=== PATIENT | male | born 1950 | race Caucasian/White ===

== ENCOUNTER 2017-11-10 17:02 | Inpatient (IN) ==
[2017-11-10] MEDS ORDERED: 0.9 % Sodium Chloride 1,000 ML IVC ONE (17:18)
[2017-11-10] MEDS ORDERED: Thiamine (B-1) 100 MG, Folic Acid 1 MG, MVI, adult with vitamin K 10 ML in 0.9 % Sodi... IVPB ONE (17:20)
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
[2017-11-10 18:03] LABS: Bilirubin,Urine Small (Negative); Blood,Urine Moderate (Negative); Clarity,Urine Clear (Clear); Color,Urine Dark Yellow (Yellow); Glucose,Urine (UA) Normal (Normal); Ketones,Urine 40 mg/dL (Negative); Leukocyte Esterase,Urine Negative (Negative); Nitrite,Urine Negative (Negative); PH,Urine 5.5 pH Units (5.0-8.0); Protein,Urine 30 mg/dL (Neg-Trace); Specific Gravity,Urine 1.018 (1.010-1.025); Urobilinogen,Urine Normal (Normal)
[2017-11-10 18:06] LABS: Bacteria,Urine None Seen per hpf (None-Few); Hyaline Casts,Urine Few per lpf (None-Few); RBC,Urine 0-3 per hpf (0-3); Squamous Epithelial Cell,Urine Few per lpf (None-Few); WBC,Urine 0-3 per hpf (0-3)
[2017-11-10 18:07] LABS: Basophils % 0.5 %; Eosinophils % 0.1 %; Hematocrit 41.4 % (37.5-50.1); Hemoglobin 14.2 g/dL (12.9-16.9); Immature Granulocytes % 0.6 % (0-4); Lymphocytes # 0.8 K/mcL (0.6-4.6); Lymphocytes % 9.4 %; Mean Corpuscular HGB Conc 34.3 g/dL (31.6-35.5); Mean Corpuscular Hemoglobin 33.8 pg (28.0-33.3); Mean Corpuscular Volume 98.6 fL (83.0-100.0); Mean Platelet Volume 10.7 fL (9.4-12.4); Monocytes # 1.1 K/mcL (0.0-1.3); Monocytes % 13.1 %; Neutrophils # 6.5 K/mcL (1.6-8.9); Platelet Count 176 K/mcL (140-400); Segmented Neutrophils % 76.3 %
[2017-11-10 18:13] LABS: INR 0.9
[2017-11-10 18:25] LABS: Troponin I < 0.03 ng/mL (< 0.04)
[2017-11-10 18:30] LABS: Albumin 4.7 g/dL (3.5-5.7); Albumin/Globulin Ratio 1.9 (1.1-2.2); Bilirubin,Direct 0.5 mg/dL (0.0-0.2); Bilirubin,Indirect 1.4 mg/dL (0.0-1.2); Bilirubin,Total 1.9 mg/dL (0.3-1.0); Globulin 2.5 g/dL (2.4-3.5); Total Protein 7.2 g/dL (6.4-8.9)
[2017-11-10 18:31] LABS: BUN/Creatinine Ratio 31 (6-26); Blood Urea Nitrogen 50 mg/dL (8-23); Calcium 9.9 mg/dL (8.6-10.3); Carbon Dioxide 22 mEq/L (23-29); Chloride 94 mEq/L (98-107); Ethanol < 10 mg/dL (Less than 10); Glucose 100 mg/dL (70-105); Osmolality,Calculated 281 (280-300); Potassium 3.9 mEq/L (3.5-5.1); Sodium 129 mEq/L (136-145); eGFR For Non-African Americans 43 (> 60)
[2017-11-10] MEDS ORDERED: *HR* LORazepam 2 MG/ML VIAL IVP ONE ×3 (19:03→21:16)
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
[2017-11-10 19:28] LABS: Amphetamine Screen,Urine Negative ng/mL (Cutoff=1000); Barbiturate Screen,Urine Negative ng/mL (Cutoff=200); Benzodiazepines Screen,Urine Negative ng/mL (Cutoff=200); Cannabinoid Screen,Urine Negative ng/mL (Cutoff = 50); Cocaine Screen,Urine Negative ng/mL (Cutoff= 300); Opiate Screen,Urine Negative ng/mL (Cutoff=300); Phencyclidine Screen,Urine Negative ng/mL (Cutoff=25)
[2017-11-10] MEDS ORDERED: *HR* Promethazine 25 MG/ML VIAL IVP PRN (20:56)
[2017-11-10] MEDS ORDERED: Naloxone 0.4 MG/ML INJ IVP PRN (20:56)
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
[2017-11-10] MEDS ORDERED: *HR* LORazepam 2 MG/ML VIAL ONE (21:17)
[2017-11-10] MEDS: *HR* Heparin 5,000 UNIT/ML VIAL SQ SCH (22:18)
[2017-11-10] MEDS: *HR* LORazepam 2 MG/ML VIAL IVP PRN ×2 (22:54→23:27)
[2017-11-10] MEDS: 0.9 % Sodium Chloride 1,000 ML IVC SCH (23:35)
[2017-11-11] MEDS: *HR* LORazepam 2 MG/ML VIAL IVP PRN ×11 (03:35→23:57)
[2017-11-11] MEDS: *HR* Heparin 5,000 UNIT/ML VIAL SQ SCH ×3 (04:57→21:12)
[2017-11-11 06:41] LABS: Alanine Aminotransferase 57 Units/L (7-52); Albumin 3.9 g/dL (3.5-5.7); Alkaline Phosphatase 38 Units/L (34-104); Aspartate Amino Transferase 82 Units/L (13-39); BUN/Creatinine Ratio 35 (6-26); Bilirubin,Total 1.9 mg/dL (0.3-1.0); Blood Urea Nitrogen 35 mg/dL (8-23); Calcium 8.6 mg/dL (8.6-10.3); Carbon Dioxide 22 mEq/L (23-29); Chloride 104 mEq/L (98-107); Glucose 84 mg/dL (70-105); Osmolality,Calculated 285 (280-300); Sodium 134 mEq/L (136-145); Total Protein 5.9 g/dL (6.4-8.9); eGFR For Non-African Americans > 60 (> 60)
[2017-11-11] MEDS: 0.9 % Sodium Chloride 1,000 ML IVC SCH (09:20)
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
[2017-11-11 11:12] LABS: Vitamin B12 275 pg/mL (250-1100)
[2017-11-11 14:58] LABS: Folate > 22.3 ng/mL (3.0-16.0)
--- NOTE | 2017-11-11 15:43 | Electrocardiograph Report ---
[place] [id number] Test Date: 2017-11-10 Pat Name: Carlos Betancourt Department: [id number] Room: 2N11 Gender: M Valance Cutter: : 1950 Requested By: Brandon Junior Order Number: [id number] Reading MD: Alexus Su Measurements Intervals [place] Rate: 93 P: -4 [place]: 140 QRS: -54 QRSD: 99 T: 46 QT: 355 QTc: 442 Interpretive Statements Sinus rhythm Left anterior fascicular block Abnormal R-wave progression, early transition Electronically Signed On 11-11-2017 15:42:16 EDT by Alexus Su
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
[2017-11-11] MEDS ORDERED: Cyanocobalamin (B-12) 1,000 MCG/ML VIAL IM ONE (17:23)
[2017-11-11] MEDS: Thiamine (B-1) 100 MG, Folic Acid 1 MG, MVI, adult with vitamin K 10 ML in 0.9 % Sodi... IVPB SCH (17:51)
[2017-11-12] MEDS: *HR* LORazepam 2 MG/ML VIAL IVP PRN ×3 (00:55→09:01)
[2017-11-12 04:40] LABS: Basophils % 0.6 %; Eosinophils # 0.1 K/mcL (0.0-0.6); Eosinophils % 2.1 %; Hematocrit 38.8 % (37.5-50.1); Hemoglobin 13.2 g/dL (12.9-16.9); Immature Granulocytes % 0.5 % (0-4); Lymphocytes % 15.4 %; Mean Corpuscular Hemoglobin 33.1 pg (28.0-33.3); Mean Corpuscular Volume 97.2 fL (83.0-100.0); Mean Platelet Volume 10.4 fL (9.4-12.4); Monocytes # 0.9 K/mcL (0.0-1.3); Monocytes % 13.8 %; Neutrophils # 4.2 K/mcL (1.6-8.9); Platelet Count 141 K/mcL (140-400); Red Blood Count 3.99 M/mcL (4.19-5.50); Red Cell Distribution Width 13.2 % (11.5-14.5); Segmented Neutrophils % 67.6 %
[2017-11-12 05:04] LABS: Alanine Aminotransferase 62 Units/L (7-52); Albumin 3.8 g/dL (3.5-5.7); Albumin/Globulin Ratio 1.8 (1.1-2.2); Alkaline Phosphatase 41 Units/L (34-104); Aspartate Amino Transferase 61 Units/L (13-39); BUN/Creatinine Ratio 24 (6-26); Bilirubin,Total 1.3 mg/dL (0.3-1.0); Blood Urea Nitrogen 17 mg/dL (8-23); Calcium 8.8 mg/dL (8.6-10.3); Carbon Dioxide 22 mEq/L (23-29); Chloride 102 mEq/L (98-107); Globulin 2.1 g/dL (2.4-3.5); Glucose 89 mg/dL (70-105); Osmolality,Calculated 281 (280-300); Potassium 3.4 mEq/L (3.5-5.1); Sodium 135 mEq/L (136-145); Total Protein 5.9 g/dL (6.4-8.9); eGFR For Non-African Americans > 60 (> 60)
[2017-11-12] MEDS: *HR* Heparin 5,000 UNIT/ML VIAL SQ SCH ×3 (05:13→21:28)
[2017-11-12] MEDS: Thiamine (B-1) 100 MG TABLET PO SCH (09:04)
--- NOTE | 2017-11-12 09:32 | Internal Med Progress Note ---
<Cosme Hsu S - Last Filed: 11/12/17 11:48> Hospitalist Progress Note - Encounter Date of Encounter: 11/12/17 Time of Encounter: 09:29 - Subjective Interval History: Mr. Betancourt is a 67 yo male with cc of confon. He came via EMS. -pt is unable to appropriately answer questions, becomes extremely agitated to sternal rub -all questions directed towards nursing and from night resident notes Pt apperently came because of confusion. Pt girlfriend was present last night and reports intermittent confusion, however, confusion has increased severly. -he picked up by police two nights ago after being found on the highway [place] 35mph -daughter reported she picked him up and brought him home -he then called 911 and reported strangers breaking into his house, naked men in garage -director of premium seat sales came and found nobody in the home -he has had an increased amount of falls and is covered in scrapes/bruises Pt has an extensive hx of EtOH abuse, drinks 5-6 12 oz cans daily -last drink was 11/09/17 Pt completely unable to be woken up. Becomes aggressive to sternal rub, reaches out to grab at things not there. -nurse reports he required sitter all night -extremely confused - Exam Vitals: Temp Pulse Resp BP Pulse Ox 97.8 F 74 17 176/97 99 11/12/17 07:23 11/12/17 07:23 11/12/17 07:23 11/12/17 07:23 11/12/17 07:23 Exam: Deferred due to aggression. - Assessment and Plan (1) Falls Current Visit: Yes Status: Acute Assessment and Plan: Hx of multiple falls -Ct head negative Plan: -concern for thiamine def and Wernicke encephalopathy -PTOT consulted -thiamine vitamin daily -banana bag -CIWA protcol, Librium 25mg PO QID -missed PTOT appt yesterday (2) Alcohol withdrawal Current Visit: Yes Status: Acute Assessment and Plan: Extensive hx of etoh abuse -last CIWA score 18 -pt completely unable to answer questions, reaches out at me, becomes agitated at sternal rub Currently HR 74, autonomic stability, BP is 176/97 -afebrile Liver US showed hepatic fatty infiltration Plan: -started on ciwa protocol Q4h -Aspiration precautions = keep head of bed elevated, neuro checks q4hr -phenergan prn nausea -MRI will not be ordered at this time due to noncompliance -toprol 12.5 BID prn SBP>160, pt most likely HTNive secondary to alcohol withdrawal -neuro consult, recommendations appreciated (3) Acute kidney injury Current Visit: Yes Status: Resolved Assessment and Plan: On admission serum manager electronic 1.61 -yesterday (11/11) 0.99 ---> 0.72 (11/12) -baseline around 1.07 Most likely prerenal 2/2 poor PO intake; resolved Plan: -continue IVF at 100cc/hr 0.9% NS discontinued -monitor renal fxn (4) Transaminitis Current Visit: Yes Status: Acute Assessment and Plan: Likely secondary to EtOH abuse -t bilirubin 1.3 -AST 61 -ALT 62 -alk phos 41 Liver US showed fatty infiltration Plan: -lifestyle modification (5) Hyponatremia Current Visit: Yes Status: Acute Assessment and Plan: mild hyponatremia of 129 on admission, increased to 135 -likely secondary to poor PO intake Plan: -discontinue 100cc/hr 0.9% NS -CMP in AM (6) Alcoholic encephalopathy Current Visit: Yes Status: Acute Assessment and Plan: -45 year history of drinking 5-6 12 ounce beers per day -has started to fall increasing amount of times per day -CT head negative for acute process -has increasing confusion, hallucination -poor sleep, according to girlfriend UDS negative EtOH level <10 Last drink 11/10 in the morning B12 level 275Folate >22.3 Plan: -on banana bag. -regular diet -monitor for DT's -[place] protocol, Librium QID -thiamine vitamin daily -vitamin B12 supplement (7) DVT prophylaxis Current Visit: Yes Status: Acute Assessment and Plan: heparin sq TID (8) Hypertension Current Visit: Yes Status: Acute Assessment and Plan: BP 176/97 -d/c lopressor -start daily lisinopril DVT Prophylaxis: sq heparin - Time Spent with Patient Total time spent is greater than 50% in coordination of care (as documented) at patient's floor/unit and/or counseling patient: less than 15 minutes Plan of Care Discussed with: nurse Internal Medicine: Result - Labs CBC & Chem 7: 11/12/17 04:18 09/14/18 04:18 Labs: Short CBC 11/12/17 Range/Units 04:18 WBC 6.2 (4.3-11.1) K/mcL Hgb 13.2 (12.9-16.9) g/dL Hct 38.8 (37.5-50.1) % Plt Count 141 (140-400) K/mcL Neutrophils # 4.2 (1.6-8.9) K/mcL BMP 11/11/17 11/12/17 09:54 04:18 Sodium 135 L Potassium 3.4 L Chloride 102 Carbon Dioxide 22 L BUN 17 Creatinine 0.72 Glucose 86 89 Calcium 8.8 Liver Function 11/12/17 Range/Units 04:18 Total Bilirubin 1.3 H (0.3-1.0) mg/dL AST 61 H (13-39) Units/L ALT 62 H (7-52) Units/L Alkaline Phosphatase 41 (34-104) Units/L Albumin 3.8 (3.5-5.7) g/dL - ABG Interpretation ABG results: PT/INR, D-dimer PT 10.0 Seconds (9.4-12.1) 11/10/17 17:35 Consult Discharge Plan - Plan Referrals: Tashai Hsu, CENTER MEDICAL DIRECTOR [Primary Care Provider] - 11/25/17 9:00 am <Fabien Trejo - Last Filed: 11/12/17 15:00> Hospitalist Progress Note - Encounter Date of Encounter: 11/12/17 - Exam Vitals: Temp Pulse Resp BP Pulse Ox 98.7 F 75 18 119/86 95 11/12/17 11:11 11/12/17 11:11 11/12/17 11:11 11/12/17 12:53 11/12/17 11:11 - Assessment and Plan (1) Falls Current Visit: Yes Status: Acute (2) Alcohol withdrawal Current Visit: Yes Status: Acute (3) Acute kidney injury Current Visit: Yes Status: Resolved (4) Transaminitis Current Visit: Yes Status: Acute (5) Hyponatremia Current Visit: Yes Status: Acute (6) Alcoholic encephalopathy Current Visit: Yes Status: Acute (7) DVT prophylaxis Current Visit: Yes Status: Acute (8) Hypertension Current Visit: Yes Status: Acute - Time Spent with Patient Total time spent is greater than 50% in coordination of care (as documented) at patient's floor/unit and/or counseling patient: Internal Medicine: Result - Labs CBC & Chem 7: 11/12/17 04:18 11/12/17 04:18 Labs: Short CBC 11/12/17 Range/Units 04:18 WBC 6.2 (4.3-11.1) K/mcL Hgb 13.2 (12.9-16.9) g/dL Hct 38.8 (37.5-50.1) % Plt Count 141 (140-400) K/mcL Neutrophils # 4.2 (1.6-8.9) K/mcL BMP 11/12/17 04:18 Sodium 135 L Potassium 3.4 L Chloride 102 Carbon Dioxide 22 L BUN 17 Creatinine 0.72 Glucose 89 Calcium 8.8 Liver Function 11/12/17 Range/Units 04:18 Total Bilirubin 1.3 H (0.3-1.0) mg/dL AST 61 H (13-39) Units/L ALT 62 H (7-52) Units/L Alkaline Phosphatase 41 (34-104) Units/L Albumin 3.8 (3.5-5.7) g/dL - ABG Interpretation ABG results: PT/INR, D-dimer PT 10.0 Seconds (9.4-12.1) 11/10/17 17:35 - Attending Attestation I examined this patient and my medical decision-making was reviewed with the Resident Physician. I agree with the documented findings, disposition and treatment plan as described except to the extent set forth below. Patient's daughter and neighbor are both at bedside. Patient less combative today. They report that he is more calm when they are present because they are familiar faces to him. He is drowsy but arouses to verbal stimuli. 1. Acute metabolic encephalopathy - secondary to chronic alcohol abuse 2. Alcohol withdrawal 3. Hypertension 4. Fatty liver disease secondary to alcohol abuse - Continue CIWA protocol - Taper Librium - Continue thiamine/folic acid supplementation - Psychiatry consult when more stable. <Cosme Hsu - Last Filed: 11/12/17 11:48> (1) Falls Qualifiers: Encounter type: initial encounter Qualified Code(s): W19.XXXA - Unspecified fall, initial encounter (2) Alcohol withdrawal Qualifiers: Complication of substance-induced condition: with delirium Qualified Code(s) : F10.231 - Alcohol dependence with withdrawal delirium (8) Hypertension Qualifiers: Hypertension type: essential hypertension Qualified Code(s): I10 - Essential (primary) hypertension <Fabien Trejo - Last Filed: 11/12/17 15:00> (1) Falls Qualifiers: Encounter type: initial encounter Qualified Code(s): W19.XXXA - Unspecified fall, initial encounter (2) Alcohol withdrawal Qualifiers: Complication of substance-induced condition: with delirium Qualified Code(s) : F10.231 - Alcohol dependence with withdrawal delirium (8) Hypertension Qualifiers: Hypertension type: essential hypertension Qualified Code(s): I10 - Essential (primary) hypertension
[2017-11-12] MEDS ORDERED: *HR* Metoprolol 5 MG/5 ML VIAL IVP PRN (12:41)
[2017-11-12] MEDS ORDERED: 0.9 % Sodium Chloride 1,000 ML IVC SCH (12:45)
[2017-11-12] MEDS: Cyanocobalamin (B-12) 1,000 MCG TABLET PO SCH (17:05)
[2017-11-12] MEDS: Thiamine (B-1) 100 MG, Folic Acid 1 MG, MVI, adult with vitamin K 10 ML in 0.9 % Sodi... IVPB SCH (17:06)
[2017-11-13] MEDS: *HR* LORazepam 2 MG/ML VIAL IVP PRN ×3 (04:53→23:14)
[2017-11-13] MEDS: *HR* Heparin 5,000 UNIT/ML VIAL SQ SCH ×3 (05:55→21:36)
[2017-11-13 06:26] LABS: Basophils # 0.1 K/mcL (0.0-0.2); Eosinophils # 0.2 K/mcL (0.0-0.6); Eosinophils % 2.9 %; Hematocrit 41.3 % (37.5-50.1); Immature Granulocytes % 0.7 % (0-4); Lymphocytes % 17.1 %; Mean Corpuscular HGB Conc 33.9 g/dL (31.6-35.5); Mean Corpuscular Hemoglobin 33.6 pg (28.0-33.3); Mean Platelet Volume 10.4 fL (9.4-12.4); Monocytes # 1.1 K/mcL (0.0-1.3); Monocytes % 18.4 %; Neutrophils # 3.7 K/mcL (1.6-8.9); Platelet Count 163 K/mcL (140-400); Red Blood Count 4.17 M/mcL (4.19-5.50); Red Cell Distribution Width 13.4 % (11.5-14.5); Segmented Neutrophils % 59.9 %
[2017-11-13 06:43] LABS: Platelet Estimate Normal (Normal)
[2017-11-13 06:44] LABS: Reactive Lymphocytes Present (Not Present)
[2017-11-13 06:46] LABS: Alanine Aminotransferase 59 Units/L (7-52); Albumin 3.6 g/dL (3.5-5.7); Albumin/Globulin Ratio 1.7 (1.1-2.2); Alkaline Phosphatase 41 Units/L (34-104); Aspartate Amino Transferase 38 Units/L (13-39); BUN/Creatinine Ratio 24 (6-26); Blood Urea Nitrogen 19 mg/dL (8-23); Carbon Dioxide 23 mEq/L (23-29); Chloride 104 mEq/L (98-107); Globulin 2.1 g/dL (2.4-3.5); Glucose 104 mg/dL (70-105); Osmolality,Calculated 287 (280-300); Potassium 3.5 mEq/L (3.5-5.1); Sodium 137 mEq/L (136-145); Total Protein 5.7 g/dL (6.4-8.9); eGFR For Non-African Americans > 60 (> 60)
[2017-11-13] MEDS: Cyanocobalamin (B-12) 1,000 MCG TABLET PO SCH (09:42)
[2017-11-13] MEDS: Thiamine (B-1) 100 MG TABLET PO SCH (09:42)
--- NOTE | 2017-11-13 10:29 | Internal Med Progress Note ---
Hospitalist Progress Note - Encounter Date of Encounter: 11/13/17 Time of Encounter: 10:27 - Subjective Interval History: No acute events overnight. Staff this morning reports it has been difficulty to get him back into bed but he was eventually cooperative. - Exam Vitals: Temp Pulse Resp BP Pulse Ox 98.0 F 77 18 148/89 95 11/13/17 06:56 11/13/17 06:56 11/13/17 06:56 11/13/17 06:56 11/12/17 19:29 Exam: Limited exam due to patient agitation. CVS: RRR Lungs: CTAB Ext: No edema - Assessment and Plan (1) Alcoholic encephalopathy Current Visit: Yes Status: Acute Assessment and Plan: -45 year history of drinking 5-6 12 ounce beers per day -has started to fall increasing amount of times per day -CT head negative for acute process -has increasing confusion, hallucination -poor sleep, according to girlfriend UDS negative EtOH level <10 Last drink 11/10 in the morning B12 level 275Folate >22.3 Plan: -on banana bag. -regular diet -monitor for DT's -CIWA protocol, Librium QID -thiamine vitamin daily -vitamin B12 supplement Taper librium today (2) Alcohol withdrawal Current Visit: Yes Status: Acute Assessment and Plan: Extensive hx of etoh abuse -last CIWA score 18 -pt completely unable to answer questions, reaches out at me, becomes agitated at sternal rub Currently HR 74, autonomic stability, BP is 176/97 -afebrile Liver US showed hepatic fatty infiltration Plan: -started on ciwa protocol Q4h -Aspiration precautions = keep head of bed elevated, neuro checks q4hr -phenergan prn nausea -MRI will not be ordered at this time due to noncompliance -toprol 12.5 BID prn SBP>160, pt most likely HTNive secondary to alcohol withdrawal (3) Falls Current Visit: Yes Status: Acute Assessment and Plan: Hx of multiple falls -Ct head negative Plan: -concern for thiamine def and Wernicke encephalopathy -PTOT consulted -thiamine vitamin daily -banana bag -CIWA protcol, Librium 25mg PO QID -missed PTOT appt yesterday (4) Acute kidney injury Current Visit: Yes Status: Resolved Assessment and Plan: On admission serum disc inspector 1.61 -yesterday (11/11) 0.99 ---> 0.72 (11/12) -baseline around 1.07 Most likely prerenal 2/2 poor PO intake; resolved Plan: -monitor renal fxn (5) Transaminitis Current Visit: Yes Status: Acute Assessment and Plan: Likely secondary to EtOH abuse -t bilirubin 1.3 -AST 61 -ALT 62 -alk phos 41 Liver US showed fatty infiltration Plan: -lifestyle modification (6) Hyponatremia Current Visit: Yes Status: Acute Assessment and Plan: mild hyponatremia of 129 on admission, increased to 135 -likely secondary to poor PO intake Plan: -discontinue 100cc/hr 0.9% NS -CMP in AM (7) DVT prophylaxis Current Visit: Yes Status: Acute Assessment and Plan: heparin sq TID (8) Hypertension Current Visit: Yes Status: Acute Assessment and Plan: Improving today -d/c lopressor -start daily lisinopril - Time Spent with Patient Total time spent is greater than 50% in coordination of care (as documented) at patient's floor/unit and/or counseling patient: Internal Medicine: Result - Labs CBC & Chem 7: 11/13/17 05:50 11/13/17 05:50 Labs: Short CBC 11/13/17 Range/Units 05:50 WBC 6.1 (4.3-11.1) K/mcL Hgb 14.0 (12.9-16.9) g/dL Hct 41.3 (37.5-50.1) % Plt Count 163 (140-400) K/mcL Neutrophils # 3.7 (1.6-8.9) K/mcL BMP 11/13/17 05:50 Sodium 137 Potassium 3.5 Chloride 104 Carbon Dioxide 23 BUN 19 Creatinine 0.80 Glucose 104 Calcium 9.0 Liver Function 11/13/17 Range/Units 05:50 Total Bilirubin 1.0 (0.3-1.0) mg/dL AST 38 (13-39) Units/L ALT 59 H (7-52) Units/L Alkaline Phosphatase 41 (34-104) Units/L Albumin 3.6 (3.5-5.7) g/dL - ABG Interpretation ABG results: PT/INR, D-dimer PT 10.0 Seconds (9.4-12.1) 11/10/17 17:35 Consult Discharge Plan - Plan Referrals: Tashia Hsu, RELEASE MANAGER [Primary Care Provider] - 11/25/17 9:00 am (2) Alcohol withdrawal Qualifiers: Complication of substance-induced condition: with delirium Qualified Code(s) : F10.231 - Alcohol dependence with withdrawal delirium (3) Falls Qualifiers: Encounter type: initial encounter Qualified Code(s): W19.XXXA - Unspecified fall, initial encounter (8) Hypertension Qualifiers: Hypertension type: essential hypertension Qualified Code(s): I10 - Essential (primary) hypertension
[2017-11-13 14:19] LABS: Sodium, Urine 22.6 mEq/L
[2017-11-13] MEDS: Thiamine (B-1) 100 MG, Folic Acid 1 MG, MVI, adult with vitamin K 10 ML in 0.9 % Sodi... IVPB SCH (16:08)
[2017-11-14] MEDS: *HR* Heparin 5,000 UNIT/ML VIAL SQ SCH ×3 (07:13→20:43)
[2017-11-14] MEDS: Cyanocobalamin (B-12) 1,000 MCG TABLET PO SCH (08:57)
[2017-11-14] MEDS: Thiamine (B-1) 100 MG TABLET PO SCH (08:58)
[2017-11-14] MEDS: *HR* LORazepam 2 MG/ML VIAL IVP PRN ×3 (08:58→23:43)
--- NOTE | 2017-11-14 11:03 | Internal Med Progress Note ---
Hospitalist Progress Note - Encounter Date of Encounter: 11/14/17 Time of Encounter: 11:06 - Subjective Interval History: No acute events overnight. Patient was very cooperative this morning. He has no complaints, eating breakfast. He is alert but still confused but pleasant at this moment. - Exam Vitals: Temp Pulse Resp BP Pulse Ox 97.3 F L 72 18 171/90 99 11/14/17 08:50 11/14/17 08:50 11/14/17 08:50 11/14/17 08:50 11/14/17 08:50 Exam: Cooperative with exam: Gen: NAD, AAO x2 CVS: RRR Lungs: CTAB Ext: No edema - Assessment and Plan (1) Alcoholic encephalopathy Current Visit: Yes Status: Acute Assessment and Plan: -45 year history of drinking 5-6 12 ounce beers per day, was started to fall increasing amount of times per day -CT head negative for acute process. Was having gradual decline over several years after alcohol abuse worsened. - [facility] protocol - Thiamine and B12 supplementation - Taper Librium today to 25 mg TID - SW and PT/OT for discharge planning. (2) Falls Current Visit: Yes Status: Acute (3) Acute kidney injury Current Visit: Yes Status: Resolved Assessment and Plan: On admission serum diagnostic technologist 1.61 Most likely prerenal 2/2 poor PO intake; resolved (4) Transaminitis Current Visit: Yes Status: Acute Assessment and Plan: Likely secondary to EtOH abuse -t bilirubin 1.3 -AST 61 -ALT 62 -alk phos 41 Liver US showed fatty infiltration Likely from chronic alcohol abuse (5) Hyponatremia Current Visit: Yes Status: Acute Assessment and Plan: mild hyponatremia of 129 on admission, increased to 135 -likely secondary to poor PO intake. Was supplemented with IV fluid hydration. Now resolved. (6) DVT prophylaxis Current Visit: Yes Status: Acute Assessment and Plan: heparin sq TID (7) Hypertension Current Visit: Yes Status: Acute Assessment and Plan: Improving after lisinopril addition. - Continue daily lisinopril - Give IV Vasotec as needed. - Time Spent with Patient Total time spent is greater than 50% in coordination of care (as documented) at patient's floor/unit and/or counseling patient: Internal Medicine: Result - Labs CBC & Chem 7: 11/13/17 05:50 11/13/17 05:50 - ABG Interpretation ABG results: PT/INR, D-dimer PT 10.0 Seconds (9.4-12.1) 11/10/17 17:35 Consult Discharge Plan - Plan Referrals: Tashia Hsu CNP [Primary Care Provider] - 11/25/17 9:00 am (2) Falls Qualifiers: Encounter type: initial encounter Qualified Code(s): W19.XXXA - Unspecified fall, initial encounter (7) Hypertension Qualifiers: Hypertension type: essential hypertension Qualified Code(s): I10 - Essential (primary) hypertension
[2017-11-15] MEDS: *HR* Heparin 5,000 UNIT/ML VIAL SQ SCH ×3 (05:58→20:38)
[2017-11-15] MEDS: *HR* LORazepam 2 MG/ML VIAL IVP PRN ×2 (07:39→20:38)
[2017-11-15] MEDS: Thiamine (B-1) 100 MG TABLET PO SCH (07:40)
[2017-11-15] MEDS: Cyanocobalamin (B-12) 1,000 MCG TABLET PO SCH (07:40)
--- NOTE | 2017-11-15 09:35 | Internal Med Progress Note ---
<HsuCosme S - Last Filed: 11/15/17 11:49> Hospitalist Progress Note - Encounter Date of Encounter: 11/15/17 Time of Encounter: 09:33 - Subjective Interval History: Mr. Betancourt is a 67 yo male with cc of confon. He came via EMS. -pt was unable to appropriately answer questions, becomes extremely agitated to sternal rub on admission -all questions directed towards nursing and from night resident notes for initial H&P Pt apperently came because of confusion. Pt girlfriend was present last night and reports intermittent confusion, however, confusion has increased severly. -he picked up by police two nights ago after being found on the [place] 35mph -daughter reported she picked him up and brought him home -he then called 911 and reported strangers breaking into his house, naked men in garage -breaker up machine operator came and found nobody in the home -he has had an increased amount of falls and is covered in scrapes/bruises Pt has an extensive hx of EtOH abuse, drinks 5-6 12 oz cans daily -last drink was 11/09/17 Pt is able to speak today and is awake. He doesn't know where he is, states the year is 1917. He knows [place] is president. He knows his birthday. -nursing staff states he has been aggressive today -continues to urinate himself -tells me to "get lost" while in the room - Exam Vitals: Temp Pulse Resp BP Pulse Ox 97.7 F 75 20 171/96 97 11/15/17 07:39 11/15/17 07:39 11/15/17 07:39 11/15/17 07:39 11/15/17 07:39 Exam: Gen: NAD, AAO x1, disheveled CVS: RRR, s1s2, cta no mrg Lungs: CTAB, no wheeze/rhonchi, no accessory mm use abd - NTND, not obese, no rebound or guarding skin - multiple tattoos, some scratches and bruises, no track haque Ext: No edema - Assessment and Plan (1) Falls Current Visit: Yes Status: Acute Assessment and Plan: Hx of multiple falls -Ct head negative B9 >22.3 B12 275 Plan: -concern for thiamine def and Wernicke encephalopathy -thiamine vitamin daily -CIWA protcol, Librium 25mg PO TID as of 11/14 -PTOT eval rec is for ECF/SNF -daughter to come today to discuss with SW future plans and for POA assignment (2) Acute kidney injury Current Visit: Yes Status: Resolved Assessment and Plan: On admission serum track sweeper 1.61 BUN 19, Jewel Inspector 0.8 Most likely prerenal 2/2 poor PO intake; resolved (3) Transaminitis Current Visit: Yes Status: Acute Assessment and Plan: Likely secondary to EtOH abuse -t bilirubin 1.0 -AST 38 -ALT 59 -alk phos 41 Liver US showed fatty infiltration Likely from chronic alcohol abuse (4) Hyponatremia Current Visit: Yes Status: Resolved Assessment and Plan: mild hyponatremia of 129 on admission, increased to 137 -likely secondary to poor PO intake. Was supplemented with IV fluid hydration. Now resolved. (5) Alcoholic encephalopathy Current Visit: Yes Status: Acute Assessment and Plan: -45 year history of drinking 5-6 12 ounce beers per day, was started to fall increasing amount of times per day -CT head negative for acute process. Was having gradual decline over several years after alcohol abuse worsened. Plan: - [facility] protocol - Thiamine and B12 supplementation - Taper Librium today to 25 mg TID (11/14) - SW and PT/OT for discharge planning -daughter to come today to discuss POA and future plans with SW (6) DVT prophylaxis Current Visit: Yes Status: Acute Assessment and Plan: heparin sq TID (7) Hypertension Current Visit: Yes Status: Acute Assessment and Plan: BP 171/96 -likely secondary to agitation -IV vasotec prn - Continue daily lisinopril DVT Prophylaxis: sq heparin - Time Spent with Patient Total time spent is greater than 50% in coordination of care (as documented) at patient's floor/unit and/or counseling patient: less than 15 minutes Plan of Care Discussed with: patient Internal Medicine: Result - Labs CBC & Chem 7: 11/13/17 05:50 11/13/17 05:50 - ABG Interpretation ABG results: PT/INR, D-dimer PT 10.0 Seconds (9.4-12.1) 11/10/17 17:35 Consult Discharge Plan - Plan Referrals: Tashia Hsu, LICENSED NURSE PRACTITIONER [Primary Care Provider] - 11/25/17 9:00 am <Fabien Trejo - Last Filed: 11/15/17 17:27> Hospitalist Progress Note - Encounter Date of Encounter: 11/15/17 - Exam Vitals: Temp Pulse Resp BP Pulse Ox 97.7 F 96 18 119/72 99 11/15/17 16:21 11/15/17 16:21 11/15/17 16:21 11/15/17 16:21 11/15/17 16:21 - Assessment and Plan (1) Falls Current Visit: Yes Status: Acute (2) Acute kidney injury Current Visit: Yes Status: Resolved (3) Transaminitis Current Visit: Yes Status: Acute (4) Hyponatremia Current Visit: Yes Status: Resolved (5) Alcoholic encephalopathy Current Visit: Yes Status: Acute (6) DVT prophylaxis Current Visit: Yes Status: Acute (7) Hypertension Current Visit: Yes Status: Acute - Time Spent with Patient Total time spent is greater than 50% in coordination of care (as documented) at patient's floor/unit and/or counseling patient: Internal Medicine: Result - Labs CBC & Chem 7: 11/13/17 05:50 11/13/17 05:50 - ABG Interpretation ABG results: PT/INR, D-dimer PT 10.0 Seconds (9.4-12.1) 11/10/17 17:35 - Attending Attestation I examined this patient and my medical decision-making was reviewed with the Resident Physician. I agree with the documented findings, disposition and treatment plan as described except to the extent set forth below. <Cosme Hsu - Last Filed: 11/15/17 11:49> (1) Falls Qualifiers: Encounter type: initial encounter Qualified Code(s): W19.XXXA - Unspecified fall, initial encounter (7) Hypertension Qualifiers: Hypertension type: essential hypertension Qualified Code(s): I10 - Essential (primary) hypertension <Fabien Trejo - Last Filed: 11/15/17 17:27> (1) Falls Qualifiers: Encounter type: initial encounter Qualified Code(s): W19.XXXA - Unspecified fall, initial encounter (7) Hypertension Qualifiers: Hypertension type: essential hypertension Qualified Code(s): I10 - Essential (primary) hypertension
[2017-11-16] MEDS: *HR* LORazepam 2 MG/ML VIAL IVP PRN ×2 (01:38→05:46)
[2017-11-16 05:43] LABS: Basophils # 0.1 K/mcL (0.0-0.2); Basophils % 1.1 %; Eosinophils # 0.2 K/mcL (0.0-0.6); Eosinophils % 4.2 %; Hematocrit 42.7 % (37.5-50.1); Hemoglobin 14.2 g/dL (12.9-16.9); Immature Granulocytes % 0.9 % (0-4); Lymphocytes # 1.2 K/mcL (0.6-4.6); Lymphocytes % 23.1 %; Mean Corpuscular HGB Conc 33.3 g/dL (31.6-35.5); Mean Corpuscular Hemoglobin 33.5 pg (28.0-33.3); Mean Corpuscular Volume 100.7 fL (83.0-100.0); Mean Platelet Volume 10.8 fL (9.4-12.4); Monocytes # 1.3 K/mcL (0.0-1.3); Monocytes % 24.5 %; Platelet Count 181 K/mcL (140-400); Red Blood Count 4.24 M/mcL (4.19-5.50); Red Cell Distribution Width 13.3 % (11.5-14.5); Segmented Neutrophils % 46.2 %
[2017-11-16] MEDS: *HR* Heparin 5,000 UNIT/ML VIAL SQ SCH ×3 (05:46→22:52)
[2017-11-16 05:52] LABS: Neutrophils # 2.5 K/mcL (1.6-8.9)
[2017-11-16 06:02] LABS: Alanine Aminotransferase 53 Units/L (7-52); Albumin 3.7 g/dL (3.5-5.7); Albumin/Globulin Ratio 1.8 (1.1-2.2); Alkaline Phosphatase 49 Units/L (34-104); Aspartate Amino Transferase 29 Units/L (13-39); BUN/Creatinine Ratio 18 (6-26); Bilirubin,Total 0.8 mg/dL (0.3-1.0); Blood Urea Nitrogen 15 mg/dL (8-23); Calcium 9.3 mg/dL (8.6-10.3); Carbon Dioxide 24 mEq/L (23-29); Chloride 109 mEq/L (98-107); Globulin 2.1 g/dL (2.4-3.5); Glucose 97 mg/dL (70-105); Osmolality,Calculated 293 (280-300); Potassium 3.6 mEq/L (3.5-5.1); Sodium 141 mEq/L (136-145); Total Protein 5.8 g/dL (6.4-8.9); eGFR For Non-African Americans > 60 (> 60)
[2017-11-16 06:13] LABS: Platelet Estimate Normal (Normal)
[2017-11-16] MEDS: Cyanocobalamin (B-12) 1,000 MCG TABLET PO SCH (07:51)
[2017-11-16] MEDS: Thiamine (B-1) 100 MG TABLET PO SCH (07:51)
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
[2017-11-17] MEDS: *HR* LORazepam 2 MG/ML VIAL IVP PRN (05:44)
[2017-11-17] MEDS: *HR* Heparin 5,000 UNIT/ML VIAL SQ SCH (05:45)
[2017-11-17 07:57] LABS: Alanine Aminotransferase 54 Units/L (7-52); Albumin 3.9 g/dL (3.5-5.7); Albumin/Globulin Ratio 1.8 (1.1-2.2); Alkaline Phosphatase 57 Units/L (34-104); Aspartate Amino Transferase 28 Units/L (13-39); BUN/Creatinine Ratio 15 (6-26); Basophils # 0.1 K/mcL (0.0-0.2); Bilirubin,Total 0.8 mg/dL (0.3-1.0); Blood Urea Nitrogen 13 mg/dL (8-23); Calcium 9.3 mg/dL (8.6-10.3); Carbon Dioxide 26 mEq/L (23-29); Chloride 107 mEq/L (98-107); Eosinophils # 0.2 K/mcL (0.0-0.6); Eosinophils % 4.5 %; Globulin 2.2 g/dL (2.4-3.5); Glucose 93 mg/dL (70-105); Hemoglobin 14.3 g/dL (12.9-16.9); Immature Granulocytes % 0.8 % (0-4); Lymphocytes # 1.1 K/mcL (0.6-4.6); Lymphocytes % 21.2 %; Mean Corpuscular HGB Conc 33.3 g/dL (31.6-35.5); Mean Corpuscular Hemoglobin 33.3 pg (28.0-33.3); Mean Corpuscular Volume 100.2 fL (83.0-100.0); Mean Platelet Volume 10.8 fL (9.4-12.4); Monocytes # 1.1 K/mcL (0.0-1.3); Monocytes % 21.1 %; Neutrophils # 2.6 K/mcL (1.6-8.9); Osmolality,Calculated 294 (280-300); Platelet Count 199 K/mcL (140-400); Potassium 3.4 mEq/L (3.5-5.1); Red Blood Count 4.29 M/mcL (4.19-5.50); Red Cell Distribution Width 13.2 % (11.5-14.5); Segmented Neutrophils % 51.4 %; Sodium 142 mEq/L (136-145); Total Protein 6.1 g/dL (6.4-8.9); eGFR For Non-African Americans > 60 (> 60)
[2017-11-17 08:56] VITALS: BP 155/85
[2017-11-17 09:24] LABS: Platelet Estimate Normal (Normal)
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
--- NOTE | 2017-11-17 09:48 | Physician Discharge Referral ---
ExtendedCare Referral Info Transfer To: [facility] Provider in Charge after Transfer: PCP Institutional Level of Care: Skilled - Diagnosis (1) Alcoholic encephalopathy Priority: Primary Status: Acute (2) Falls Priority: Secondary Status: Acute (3) Acute kidney injury Priority: Secondary Status: Resolved (4) Transaminitis Priority: Secondary Status: Acute (5) Hyponatremia Priority: Secondary Status: Resolved (6) DVT prophylaxis Priority: Secondary Status: Acute (7) Hypertension Priority: Secondary Status: Acute Prognosis: Fair Aware of Diagnosis: Family Aware of Prognosis: Family - Transfer Medications Prescriptions: Haloperidol [Haldol] 0.5 mg PO BID 30 Days #60 tablet Lisinopril [Zestril] 10 mg PO DAILY 30 Days #30 tablet Home Medications: Haloperidol [Haldol] 0.5 mg PO BID 30 Days #60 tablet 11/17/17 [Rx] Lisinopril [Zestril] 10 mg PO DAILY 30 Days #30 tablet 11/17/17 [Rx] Allergies/Adverse Reactions: 3 Allergy/AdvReac Type Severity Reaction Status Date / Time No Known Allergies Allergy Verified 07/18/16 12:21 - Respiratory Orders Smoking Cessation: Smoking cessation has been advised. For more information, call the [place] Tobacco Quit Line at 7-696-QUQFNOW. CERTIFICATION: I certify that the transfer of the above named patient to an Extended Care Facility is necessary for the continuing treatment of the diagnosis listed. The above information is true and accurate reflection of patient's current condition. Confidential - Redisclosure prohibited without a patient's written consent.
[2017-11-17] MEDS: Cyanocobalamin (B-12) 1,000 MCG TABLET PO SCH (11:27)
[2017-11-17] MEDS: Thiamine (B-1) 100 MG TABLET PO SCH (11:27)
== END 2017-11-17 17:42 | DRG 57 ==
LOC: EMEROOARM 17:02 → 3BNU 17:02 → 2NNU 11-11 00:52 → 3BNU 11-16 13:08
PROVIDERS: ADMIT Internal Medicine; ATTEND Internal Medicine